=== PATIENT | male | born 1960 | race African-American/Black ===

== ENCOUNTER 2018-06-30 23:00 | Emergency (ER) | payer MEDICAID ==
[~2018-06-30] VITALS: Ht 175.3 cm; Wt 78.9 kg
[2018-06-30] MEDS ORDERED: cloNIDine HCL 0.1 MG TAB PO ONE (23:15)
[2018-06-30 23:50] LABS: Basophils # (auto) 0 uL; Basophils % (auto) 0.3 % (0.0-2.0); Eosinophils # (auto) 0 uL; Eosinophils % (auto) 0.1 % (0.0-7.0); Hematocrit 49.2 % (41.0-53.0); Hemoglobin 16.2 g/dL (13.5-17.5); Lymphocytes % (auto) 17.3 % (10.0-50.0); Mean Corpuscular Hemoglobin 30.2 pg (28.0-32.0); Mean Corpuscular Hgb Conc. 32.8 g/dL (32.0-36.0); Mean Corpuscular Volume 91.9 fL (80.0-100.0); Monocytes # (auto) 0.9 uL; Monocytes % (auto) 7.2 % (0.0-12.0); Neutrophils # (auto) 8.8 uL; Neutrophils % (auto) 75.1 % (37.0-80.0); Nucleated Red Blood Cells % 0.1 %; Platelet Count (auto) 240 10^3/uL (140-450); Red Blood Cells 5.36 10^6/uL (4.5-5.90); Red Cell Distribution Width 15.1 % (11.8-14.3); White Blood Cell 11.7 10^3/uL (4.4-10.8)
[2018-07-01 00:07] LABS: Albumin 4.3 g/dL (3.4-5.0); Anion Gap 9 (5-15); BUN/Creatinine Ratio 18.1; Blood Urea Nitrogen 31 mg/dL (7-18); Calcium 9.4 mg/dL (8.5-10.1); Carbon Dioxide 25 mmol/L (21-32); Chloride 106 mmol/L (98-107); GFR African American 53 mL/min; GFR Non-African American 44 mL/min; Glucose 145 mg/dL (74-106); Potassium 3.5 mmol/L (3.5-5.1); Sodium 140 mmol/L (136-145)
[2018-07-01 00:17] LABS: Alkaline Phosphatase 102 U/L (45-117)
[2018-07-01 00:18] LABS: Alanine Aminotransferase 31 U/L (16-61); Aspartate Aminotransferase 13 U/L (15-37); Bilirubin, Total 1.1 mg/dL (0.2-1.0); Total Protein 8.5 g/dL (6.4-8.2)
[2018-07-01 01:40] VITALS: BP 136/84
== END 2018-07-01 01:46 | disposition left against medical advice (07) ==
LOC: ER 23:07
DX: I10 Essential (primary) hypertension (principal); Z53.21 Procedure and treatment not carried out due to patient leaving prior to being seen by health care provider
CPT/HCPCS: 36415; 70450; 80053; 83735; 84484; 85025; 93005

== ENCOUNTER 2020-07-03 20:32 | Inpatient (IN) | payer MEDICAID ==
[~2020-07-03] VITALS: Ht 177.8 cm; Wt 79.0 kg
[2020-07-03 22:11] LABS: Basophils # (auto) 0 10 ^3/uL (0-0.2); Basophils % (auto) 0.3 % (0.0-2.0); Eosinophils # (auto) 0 10 ^3/uL (0-0.8); Eosinophils % (auto) 0.1 % (0.0-7.0); Hemoglobin 15.8 g/dL (13.5-17.5); Lymphocytes # (auto) 3.4 10 ^3/uL (0.4-5.4); Mean Corpuscular Hemoglobin 30.6 pg (28.0-32.0); Mean Corpuscular Hgb Conc. 33.7 g/dL (32.0-36.0); Mean Corpuscular Volume 90.9 fL (80.0-100.0); Monocytes # (auto) 1.5 10 ^3/uL (0-1.3); Monocytes % (auto) 7.7 % (0.0-12.0); Neutrophils # (auto) 14.1 10 ^3/uL (1.6-8.6); Neutrophils % (auto) 73.9 % (37.0-80.0); Nucleated Red Blood Cells % 0.2 %; Platelet Count (auto) 280 10^3/uL (140-450); Red Blood Cells 5.17 10^6/uL (4.5-5.90); Red Cell Distribution Width 14.9 % (11.8-14.3)
[2020-07-03 22:34] LABS: Alanine Aminotransferase 22 U/L (16-61); Albumin 4.3 g/dL (3.4-5.0); Anion Gap 15 (5-15); Aspartate Aminotransferase 17 U/L (15-37); BUN/Creatinine Ratio 12.4; Blood Urea Nitrogen 36 mg/dL (7-18); Calcium 9.4 mg/dL (8.5-10.1); Carbon Dioxide 27 mmol/L (21-32); Chloride 95 mmol/L (98-107); GFR African American 28 mL/min; GFR Non-African American 24 mL/min; Glucose 215 mg/dL (74-106); Lipase 122 U/L (73-393); Magnesium 3.5 mg/dL (1.6-2.6); Sodium 137 mmol/L (136-145)
[2020-07-03 22:36] LABS: INR 1.03 (0.9-1.15); Lactic Acid w/Reflex 5.2 mmol/L (0.4-2.0)
[2020-07-03 22:39] LABS: Alkaline Phosphatase 90 U/L (45-117); Bilirubin, Total 1.3 mg/dL (0.2-1.0); Total Protein 8.8 g/dL (6.4-8.2)
[2020-07-03 22:43] LABS: Potassium 2.8 mmol/L (3.5-5.1)
[2020-07-03] MEDS ORDERED: ONDANSETRON HCL 4 MG/2 ML VIAL IV ONE (23:00)
[2020-07-03] MEDS ORDERED: SODIUM CHLORIDE 0.9% 1,000 ML IV ONE (23:00)
[2020-07-03] MEDS: POTASSIUM CHL 20MEQ/100ML 100 ML IV SCH (23:40)
[2020-07-04] MEDS: POTASSIUM CHL 20MEQ/100ML 100 ML IV SCH (01:29)
[2020-07-04] MEDS ORDERED: cloNIDine 0.1 mg/24hr 7 DAY PATCH TD ONE (02:15)
[2020-07-04] MEDS ORDERED: cloNIDine HCL 0.1 MG TAB PO ONE (02:30)
[2020-07-04] MEDS ORDERED: METOCLOPRAMIDE HCL 5MG/ml INJ 2ml VIAL IV ONE (03:00)
[2020-07-04] MEDS ORDERED: MORPHINE SULF INJ 2 MG/ML SYRINGE 1ML IV PRN ×2 (05:15→09:15)
[2020-07-04] MEDS ORDERED: ACETAMINOPHEN 325 MG TAB PO PRN (05:15)
[2020-07-04] MEDS ORDERED: HYDROcodone-ACET 5/325MG TAB PO PRN (05:15)
[2020-07-04] MEDS ORDERED: MORPHINE SULFATE 4 MG/ML SYR/VIAL IV PRN (05:15)
[2020-07-04] MEDS ORDERED: DOCUSATE SOD 100 MG CAP PO PRN (05:15)
[2020-07-04] MEDS ORDERED: ONDANSETRON HCL 4 MG/2 ML VIAL IV PRN (05:15)
[2020-07-04] MEDS ORDERED: NITROGLYCERIN 0.4 MG SL TAB SL PRN (05:15)
[2020-07-04 05:44] LABS: Urine Bacteria FEW /hpf (None Seen); Urine Blood 1+ /uL (Negative); Urine Hyaline Cast MANY /lpf (0 - 2); Urine Mucus FEW (None Seen); Urine Specific Gravity 1.021 (1.001-1.035); Urine WBC 2 /hpf (0 - 3)
[2020-07-04] MEDS: SODIUM CHLORIDE 0.9% 1,000 ML IV SCH ×2 (05:44→21:55)
[2020-07-04] MEDS: hydrALAZINE HCL 20 MG/ML VL IV PRN ×2 (05:55→22:20)
[2020-07-04 08:00] VITALS: BP 153/90
[2020-07-04 08:38] LABS: Basophils # (auto) 0 10 ^3/uL (0-0.2); Basophils % (auto) 0.2 % (0.0-2.0); Eosinophils # (auto) 0 10 ^3/uL (0-0.8); Eosinophils % (auto) 0.2 % (0.0-7.0); Hematocrit 40.9 % (41.0-53.0); Hemoglobin 13.8 g/dL (13.5-17.5); Lymphocytes # (auto) 2.9 10 ^3/uL (0.4-5.4); Lymphocytes % (auto) 18.7 % (10.0-50.0); Mean Corpuscular Hemoglobin 30.5 pg (28.0-32.0); Mean Corpuscular Hgb Conc. 33.6 g/dL (32.0-36.0); Mean Corpuscular Volume 90.6 fL (80.0-100.0); Monocytes % (auto) 6.7 % (0.0-12.0); Neutrophils # (auto) 11.5 10 ^3/uL (1.6-8.6); Neutrophils % (auto) 74.2 % (37.0-80.0); Nucleated Red Blood Cells % 0.1 %; Platelet Count (auto) 232 10^3/uL (140-450); Red Blood Cells 4.51 10^6/uL (4.5-5.90); White Blood Cell 15.5 10^3/uL (4.4-10.8)
[2020-07-04 08:51] LABS: Albumin 3.3 g/dL (3.4-5.0); Calcium 8.3 mg/dL (8.5-10.1); Magnesium 3.2 mg/dL (1.6-2.6); Potassium 3.4 mmol/L (3.5-5.1)
[2020-07-04 08:55] LABS: BUN/Creatinine Ratio 17.2; Bilirubin, Total 0.7 mg/dL (0.2-1.0); Total Protein 6.9 g/dL (6.4-8.2)
[2020-07-04] MEDS: FAMOTIDINE (10MG/ML) 2ML VL IV SCH ×2 (09:51→22:07)
[2020-07-04] MEDS: cefTRIAXone 1GM/50ML D5W 50 ML IV SCH (09:51)
[2020-07-04] MEDS: ZINC SULFATE 220mg CAP or TAB PO SCH (09:52)
[2020-07-04] MEDS: amLODIPine BESYLATE 5 MG TAB PO SCH (09:52)
[2020-07-04] MEDS: ASCORBIC ACID 500 MG TAB PO SCH ×2 (09:53→22:08)
[2020-07-04] MEDS ORDERED: MULTIPLE VITAMIN TAB PO SCH (10:00)
[2020-07-04] MEDS: HEPARIN SODIUM (PORCINE) 5000 UNITS/ML 1ML VIAL SC SCH ×2 (10:06→22:08)
[2020-07-04 11:27] VITALS: BP 153/90
[2020-07-04 12:00] VITALS: BP 153/96
[2020-07-04 16:00] VITALS: BP 134/73
[2020-07-04] MEDS ORDERED: POTASSIUM CHLORIDE 8 MEQ TAB PO ONE (17:00)
[2020-07-04 19:22] LABS: Urine Bacteria NONE SEEN /hpf (None Seen); Urine Blood Negative /uL (Negative); Urine Specific Gravity 1.013 (1.001-1.035); Urine WBC 1 /hpf (0 - 3)
[2020-07-04 19:34] LABS: Protein, Urine 23.4 mg/dL (0.0-11.9)
[2020-07-04 19:37] LABS: Barbiturate Scree,Urine NEGATIVE (NEGATIVE); Benzodiazephine Screen, Urine NEGATIVE (NEGATIVE); Cannabinoid Screen, Urine POSITIVE (NEGATIVE); Cocaine Screen, Urine NEGATIVE (NEGATIVE); Opiate Scree,Urine NEGATIVE (NEGATIVE); Phencyclidine Screen, Urine NEGATIVE (NEGATIVE)
[2020-07-04 19:44] LABS: Amphetamine Screen, Urine NEGATIVE (NEGATIVE)
[2020-07-04 20:05] LABS: Magnesium 2.8 mg/dL (1.6-2.6); Phosphorus 2.7 mg/dL (2.5-4.90)
[2020-07-04 22:00] VITALS: BP 163/118
[2020-07-04] MEDS: ZOLPIDEM TARTRATE 5 MG TAB PO PRN (23:20)
[2020-07-05 05:00] VITALS: BP 156/90
[2020-07-05 06:48] LABS: Basophils # (auto) 0.1 10 ^3/uL (0-0.2); Basophils % (auto) 0.5 % (0.0-2.0); Eosinophils # (auto) 0 10 ^3/uL (0-0.8); Eosinophils % (auto) 0.1 % (0.0-7.0); Hematocrit 42.2 % (41.0-53.0); Hemoglobin 14.5 g/dL (13.5-17.5); Lymphocytes # (auto) 2.2 10 ^3/uL (0.4-5.4); Mean Corpuscular Hemoglobin 31.3 pg (28.0-32.0); Mean Corpuscular Hgb Conc. 34.4 g/dL (32.0-36.0); Mean Corpuscular Volume 90.9 fL (80.0-100.0); Monocytes # (auto) 0.6 10 ^3/uL (0-1.3); Monocytes % (auto) 5.4 % (0.0-12.0); Neutrophils # (auto) 8.1 10 ^3/uL (1.6-8.6); Nucleated Red Blood Cells % 0.3 %; Platelet Count (auto) 245 10^3/uL (140-450); Red Blood Cells 4.64 10^6/uL (4.5-5.90)
[2020-07-05 06:59] LABS: Albumin 3.3 g/dL (3.4-5.0); BUN/Creatinine Ratio 19.6; Calcium 8.7 mg/dL (8.5-10.1); Potassium 3.6 mmol/L (3.5-5.1)
[2020-07-05 07:02] LABS: Bilirubin, Total 0.7 mg/dL (0.2-1.0); Total Protein 7.2 g/dL (6.4-8.2)
[2020-07-05] MEDS: SODIUM CHLORIDE 0.9% 1,000 ML IV SCH (07:32)
[2020-07-05 09:00] VITALS: BP 160/99
[2020-07-05] MEDS ORDERED: LABETALOL HCL 5 MG/ML 4ML SYRINGE IV ONE (09:30)
[2020-07-05] MEDS: cefTRIAXone 1GM/50ML D5W 50 ML IV SCH (09:49)
[2020-07-05] MEDS: ZINC SULFATE 220mg CAP or TAB PO SCH (09:50)
[2020-07-05] MEDS: FAMOTIDINE (10MG/ML) 2ML VL IV SCH (09:50)
[2020-07-05] MEDS: amLODIPine BESYLATE 5 MG TAB PO SCH (09:50)
[2020-07-05] MEDS: ASCORBIC ACID 500 MG TAB PO SCH (09:51)
[2020-07-05] MEDS: HEPARIN SODIUM (PORCINE) 5000 UNITS/ML 1ML VIAL SC SCH ×2 (09:51→20:24)
[2020-07-05] MEDS: DOCUSATE SOD 100 MG CAP PO SCH ×2 (10:00→20:25)
[2020-07-05] MEDS ORDERED: PANTOPRAZOLE 40 MG TAB PO ONE (10:15)
[2020-07-05 13:00] VITALS: BP 158/97
[2020-07-05] MEDS ORDERED: METOPROLOL SUCCINATE XL 50 MG TAB PO SCH (16:00)
[2020-07-05 17:00] VITALS: BP 126/83
[2020-07-05] MEDS ORDERED: ONDANSETRON HCL 4 MG/2 ML VIAL IV PRN (19:15)
[2020-07-05 22:09] VITALS: BP 161/113
[2020-07-05] MEDS: hydrALAZINE HCL 20 MG/ML VL IV PRN (22:30)
[2020-07-06] VITALS (7 sets, daily range): BP systolic 141–196; BP diastolic 94–105
[2020-07-06] MEDS: hydrALAZINE HCL 20 MG/ML VL IV PRN ×2 (04:21→23:35)
[2020-07-06] MEDS ORDERED: hydrALAZINE HCL 20 MG/ML VL IV ONE (05:30)
[2020-07-06 07:26] LABS: Calcium 9.1 mg/dL (8.5-10.1); Potassium 3.5 mmol/L (3.5-5.1)
[2020-07-06 07:28] LABS: BUN/Creatinine Ratio 16.8
[2020-07-06] MEDS: DOCUSATE SOD 100 MG CAP PO SCH ×2 (08:49→22:32)
[2020-07-06] MEDS: cefTRIAXone 1GM/50ML D5W 50 ML IV SCH (08:49)
[2020-07-06] MEDS: amLODIPine BESYLATE 5 MG TAB PO SCH (08:51)
[2020-07-06] MEDS: PANTOPRAZOLE 40 MG TAB PO SCH (08:51)
[2020-07-06] MEDS: METOPROLOL TARTRATE 50 MG TAB PO SCH ×2 (08:51→22:33)
[2020-07-06] MEDS: HEPARIN SODIUM (PORCINE) 5000 UNITS/ML 1ML VIAL SC SCH ×2 (08:53→22:33)
[2020-07-06] MEDS: ZOLPIDEM TARTRATE 5 MG TAB PO PRN (23:34)
[2020-07-07 00:15] VITALS: BP 187/99
[2020-07-07 05:00] VITALS: BP 151/99
[2020-07-07 07:16] LABS: Calcium 9.1 mg/dL (8.5-10.1); Potassium 3.6 mmol/L (3.5-5.1)
[2020-07-07 07:17] LABS: BUN/Creatinine Ratio 19.8
[2020-07-07 08:15] VITALS: BP_SYST 149; BP_SYST 169; BP_DIAS 90; BP_DIAS 92
[2020-07-07] MEDS: cefTRIAXone 1GM/50ML D5W 50 ML IV SCH (08:15)
[2020-07-07 08:45] VITALS: BP 149/90
[2020-07-07] MEDS: DOCUSATE SOD 100 MG CAP PO SCH (10:18)
[2020-07-07] MEDS: PANTOPRAZOLE 40 MG TAB PO SCH (10:18)
[2020-07-07] MEDS: METOPROLOL TARTRATE 50 MG TAB PO SCH (10:19)
[2020-07-07] MEDS: amLODIPine BESYLATE 5 MG TAB PO SCH (10:19)
[2020-07-07] MEDS: HEPARIN SODIUM (PORCINE) 5000 UNITS/ML 1ML VIAL SC SCH (10:22)
[2020-07-07] MEDS ORDERED: PANT40TA2 PO (10:59)
[2020-07-07 13:00] VITALS: BP 149/90
== END 2020-07-07 13:45 | disposition home or self-care (01) | DRG 720 ==
LOC: ER 20:32 → TELE 07-04 05:07 → TELE-EAST 07-04 08:48
PROVIDERS: ADMIT Nurse Practitioner Family; ATTEND Internal Medicine Pulmonary Disease
DX: A41.9 Sepsis, unspecified organism (principal); E87.2 Acidosis; N17.9 Acute kidney failure, unspecified; E83.41 Hypermagnesemia; N28.1 Cyst of kidney, acquired; R13.10 Dysphagia, unspecified; N18.31 Chronic kidney disease, stage 3a; Z20.822 Contact with and (suspected) exposure to COVID-19; K29.70 Gastritis, unspecified, without bleeding; N30.90 Cystitis, unspecified without hematuria; E87.6 Hypokalemia; R73.9 Hyperglycemia, unspecified; K21.9 Gastro-esophageal reflux disease without esophagitis; F12.90 Cannabis use, unspecified, uncomplicated; K59.00 Constipation, unspecified; E56.9 Vitamin deficiency, unspecified; I12.9 Hypertensive chronic kidney disease with stage 1 through stage 4 chronic kidney disease, or unspecified chronic kidney disease; Z82.49 Family history of ischemic heart disease and other diseases of the circulatory system
CPT/HCPCS: 36415; 71046; 74176; 76775; 80048; 80053; 80307; 81001; 82306; 82570; 83036; 83605; 83690; 83735; 83970; 84100; 84154; 84156; 84300; 84484; 85025; 85610; 87040; 87086; 87426; 93005; 96361; 96365; 96366; 96375; G0378; J0696; J2405; J3480; J3490